=== PATIENT | female | born 1995 | race Caucasian/White ===

== ENCOUNTER 2022-12-03 19:11 | Outpatient (CLI) | payer OTHER, SELFPAY | END 2022-12-03 19:12 | disposition home or self-care (01) | LOC: AMB 01-09 11:58 | PROVIDERS: Visit Provider Family Medicine | DX: S29.9XXA Unspecified injury of thorax, initial encounter (principal); V49.49XA Driver injured in collision with other motor vehicles in traffic accident, initial encounter; Y92.410 Unspecified street and highway as the place of occurrence of the external cause | CPT/HCPCS: A0425; A0427 ==

== ENCOUNTER 2022-12-03 19:38 | Emergency (ER) | payer OTHER, SELFPAY ==
[2022-12-03] VITALS (14 sets, daily range): BP systolic 107–133; BP diastolic 71–97; PULSE 102–136; O2SAT 96–100; BMI 29.3
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
[2022-12-03 20:28] LABS: Basophils Absolute Auto 0.01 K/uL (0.00-0.30); Basophils Percent Auto 0.1 % (0.0-3.0); Eosinophils Absolute Auto 0.22 K/uL (0.00-0.50); Eosinophils Percent Auto 2.9 % (0.0-7.0); Hematocrit 37.5 % (33.0-51.0); Hemoglobin* 12.8 gm/dL (12.0-16.0); Immature Granulocytes Abs Auto 0.03 K/uL (0.00-0.30); Immature Granulocytes Pct Auto 0.4 %; Lymphocytes Absolute Auto 2.49 K/uL (0.90-2.90); Lymphocytes Percent Auto 33.4 % (20-44); Mean Corpuscular HGB Conc 34 gm/dL (32-36); Mean Corpuscular Hemoglobin 31 pg (26-34); Mean Corpuscular Volume 92 fL (80-100); Monocytes Percent Auto 6.6 % (0.0-11.0); Neutrophils Absolute Auto 4.22 K/uL (1.7-7.0); Neutrophils Percent Auto 56.6 % (42.0-72.0); Platelet Count* 291 K/uL (140-440); RDW Coefficient of Variation % 12.4 % (11.5-15.5); Red Blood Count 4.08 m/uL (4.00-5.20); White Blood Count* 7.46 K/uL (4.50-11.00)
[2022-12-03 20:30] LABS: Slide Review Reflex No
[2022-12-03 20:39] LABS: Chloride* 109 mmol/L (96-114); Potassium* 3.3 mmol/L (3.6-5.1); Sodium* 140 mmol/L (135-149)
[2022-12-03 20:42] LABS: Anion Gap 12 mEq/L (7-15); Carbon Dioxide* 19 mmol/L (20-32); Creatinine* 0.6 mg/dL (0.5-1.5); Est. Creatinine Clearance* 109.42; Estimated Glomerular Filt Rate 125 ml/min
[2022-12-03 20:43] LABS: Blood Urea Nitrogen* 12 mg/dL (5-24); Calcium* 8.9 mg/dL (8.4-10.6); Glucose* 140 mg/dL (60-115)
[2022-12-03 20:45] LABS: Partial Thromboplastin Time* 24 Seconds (23-33)
[2022-12-03] MEDS: 0.9 % SODIUM CHLORIDE 1000 ml 1,000 ML IV (21:01)
[2022-12-03] MEDS: MORPHINE 4 MG/ML INJ IVP (21:01)
[2022-12-03 22:51] LABS: Appearance Urine Clear (Clear); Bilirubin Urine Negative (Negative); Blood Urine Trace-intact (Negative); Color Urine Yellow (Yellow); Glucose Urine Negative (Negative); Ketones Urine Negative (Negative); Leukocyte Esterase Urine Negative (Negative); Nitrite Urine Negative (Negative); Protein Urine Negative (Negative); Specific Gravity Urine 1.015 (1.000-1.030); Urobilinogen Urine 0.2 (0.2-1.0)
[2022-12-03 22:59] LABS: Bacteria Urine Few; Mucus Urine Few; RBC Urine 0-2 (0-2); Squamous Epithelial Cell Urine Few (None-Few); Ur HCG Qualitative* Negative (Negative); WBC Urine 0-2 (0-5)
== END 2022-12-03 22:50 | disposition home or self-care (01) ==
PROVIDERS: Emergency Medicine; Emergency Provider Family Medicine
DX: S42.002A Fracture of unspecified part of left clavicle, initial encounter for closed fracture (principal); V43.52XA Car driver injured in collision with other type car in traffic accident, initial encounter
CPT/HCPCS: 36415; 70450; 71045; 71260; 72125; 74177; 80048; 81001; 81025; 84484; 85025; 85730; 87086; 93005; 94761; 96374; 99284; 99285; 99291; G0390; J2270; J7030; Q9967